=== PATIENT | male | born 1990 | race African-American/Black ===

== ENCOUNTER 2018-05-05 22:37 | Emergency (ER) | payer BC ==
[~2018-05-05] VITALS: Ht 182.9 cm; Wt 95.3 kg
[2018-05-05 22:50] VITALS: BP 119/58
[2018-05-05] MEDS ORDERED: PROAIR HFA8.5 GM INH (23:02)
--- NOTE | 2018-05-05 23:03 | PHYS DOC ---
Past Medical History Past Medical History: No Pertinent History Past Surgical History: No Surgical History Alcohol Use: Occasionally Drug Use: Marijuana Adult General Chief Complaint Chief Complaint: MEDICATION REFILL HPI HPI Patient is a 27 year old male who presents with a need for medication refill. The patient is asthmatic and uses Proair inhalers. He states that he finished the last of his inhaler today. He is not currently symptomatic. He does not have a primary care provider and does need a referral for primary care. Review of Systems Review of Systems Constitutional: Denies fever or chills [] Eyes: Denies change in visual acuity, redness, or eye pain [] HENT: Denies nasal congestion or sore throat [] Respiratory: Denies cough or shortness of breath [] Cardiovascular: No additional information not addressed in HPI [] Neurologic: Denies headache, focal weakness or sensory changes [] Endocrine: Denies polyuria or polydipsia [] All other systems were reviewed and found to be within normal limits, except as documented in this note. Allergies Allergies Allergies Coded Allergies Type Severity Reaction Last Updated Verified No Known Drug Allergies 01/29/16 No Physical Exam Physical Exam Constitutional: Well developed, well nourished, no acute distress, non-toxic appearance. [] HENT: Normocephalic, atraumatic, bilateral external ears normal, oropharynx moist, no oral exudates, nose normal. [] Eyes: PERRLA, EOMI, conjunctiva normal, no discharge. [] Neck: Normal range of motion, no tenderness, supple, no stridor. [] Cardiovascular:Heart rate regular rhythm, no murmur [] Lungs & Thorax: Bilateral breath sounds clear to auscultation [] Neurologic: Alert and oriented X 3, normal motor function, normal sensory function, no focal deficits noted. [] Psychologic: Affect normal, judgement normal, mood normal. [] EKG EKG [] Radiology/Procedures Radiology/Procedures [] Course & Med Decision Making Course & Med Decision Making Pertinent Labs and Imaging studies reviewed. (See chart for details) [] Dragon Disclaimer Dragon Disclaimer This electronic medical record was generated, in whole or in part, using a voice recognition dictation system. Departure Departure Impression: Primary Impression: Medication refill Disposition: HOME, SELF-CARE Condition: STABLE Referrals: NO PCP (PCP) Patient Instructions: Liquid Medication Administration Additional Instructions: Use the medication as directed. Follow-up with primary care for recheck. If worsening return to the emergency department. Scripts Albuterol Sulfate (PROAIR HFA INHALER) 8.5 Gm Hfa.aer.ad 1 PUFF INH PRN Q6HRS PRN for SHORTNESS OF BREATH, #1 INHALER 6 Refills Prov: MED GOODMAN APRN 05/05/18 MED GOODMAN APRN May 05, 2018 23:03
== END 2018-05-05 23:20 | disposition home or self-care (01) ==
LOC: ER 22:37
DX: J45.909 Unspecified asthma, uncomplicated (principal); Z76.0 Encounter for issue of repeat prescription
CPT/HCPCS: 99283

== ENCOUNTER 2019-06-16 19:01 | Emergency (ER) | payer BC ==
[~2019-06-16] VITALS: Ht 182.9 cm; Wt 99.8 kg
[~2019-06-16 19:01] MED LIST: ALBU2.5V8 INH; PRED50TA PO
--- NOTE | 2019-06-16 20:57 | PHYS DOC ---
Past Medical History Past Medical History: Asthma, Bipolar Past Surgical History: No Surgical History Alcohol Use: Occasionally Drug Use: Marijuana Adult General Chief Complaint Chief Complaint: ABDOMINAL PAIN HPI HPI 28-year-old male presents to the emergency department with complaints of left side pain located in the ribs. He states worsens with movement, deep breath. States this is been ongoing for a few days off and on however today was worse. He denies any nausea, vomiting, shortness of breath, abdominal pain. She has tried no [id number] medications for his pain. All other ROS negative unless documented in HPI Review of Systems Review of Systems See Above Current Medications Current Medications Current Medications Medications (Trade) Dose Ordered Sig/Ita Start Time Stop Time Status Last Admin Dose Admin Ketorolac Tromethamine (Toradol Im) 60 mg 1X ONCE 06/16/19 21:00 06/16/19 21:01 DC Allergies Allergies Allergies Coded Allergies Type Severity Reaction Last Updated Verified No Known Drug Allergies 01/29/16 No Physical Exam Physical Exam See Above Constitutional: Well developed, well nourished, no acute distress, non-toxic appearance. [] Cardiovascular:Heart rate regular rhythm, no murmur [] Lungs & Thorax: Bilateral breath sounds clear to auscultation, pain to palpation over the left ribs[] Abdomen: Bowel sounds normal, soft, no tenderness, no masses, no pulsatile masses. [] Skin: Warm, dry, no erythema, no rash. [] Back: No tenderness, no CVA tenderness. [] Extremities: No tenderness, no edema. [] Neurologic: Alert and oriented X 3, no focal deficits noted. [] Psychologic: Affect normal, judgement normal, mood normal. [] Current Patient Data Vital Signs Vital Signs Date Time Temp Pulse Resp B/P (MAP) Pulse Ox O2 Delivery O2 Flow Rate FiO2 06/16/19 19:37 97.6 77 18 139/86 (103) 96 Room Air 97.6 EKG EKG [] Radiology/Procedures Radiology/Procedures [] Course & Med Decision Making Course & Med Decision Making Pertinent Labs and Imaging studies reviewed. (See chart for details) []28-year-old male presents to the emergency department with complaints of left side pain located in the ribs. He states worsens with movement, deep breath. States this is been ongoing for a few days off and on however today was worse. He denies any nausea, vomiting, shortness of breath, abdominal pain. She has tried no kxeu-[id number]-[id number] medications for his pain. CXR without acute findings Likely costochondritis - discussed use of anti-inflammatory over the counter Toradol IV offered in ER Discussed findings with mother/patient at bedside Noé Disclaimer Noé Disclaimer This electronic medical record was generated, in whole or in part, using a voice recognition dictation system. Departure Departure Impression: Primary Impression: Costochondritis Disposition: 01 HOME, SELF-CARE Condition: STABLE Referrals: NO PCP (PCP) Patient Instructions: Costochondritis, [id number] Additional Instructions: Recommend follow up with PCP 3 - 5 days Return to the ER with worsening symptoms, intractable pain, fever, altered mental status Motrin 800mg as needed every 8 hours for pain Flagyl 500mg po BID x 7 days (trich exposure) Scripts Metronidazole (FLAGYL) 500 Mg Tablet 1 TAB PO BID, #14 TAB Prov: TIFFANY MONK MD 06/16/19 TIFFANY MONK MD Jun 16, 2019 20:57
[2019-06-16] MEDS ORDERED: KETOROLAC 60 MG/2 ML VIAL. IM ONE (21:00)
[2019-06-16 21:56] VITALS: BP 106/67
[2019-06-16] MEDS ORDERED: METR500T PO (22:02)
--- NOTE | 2019-06-16 23:05 | RAD ---
CHEST AP ONLY Clinical Indication: Left sided chest pain Comparison: None. Findings: Portable upright frontal view of the chest was obtained. The cardiomediastinal silhouette is normal. Lungs are clear. There is no pneumothorax. No pleural effusion is appreciated. No acute bone abnormality. IMPRESSION: No acute cardiopulmonary process. Electronically signed by: Hany Lawton MD (06/16/2019 11:02 PM) [facility]
== END 2019-06-16 22:01 | disposition home or self-care (01) ==
LOC: ER 19:01
DX: M94.0 Chondrocostal junction syndrome [Tietze] (principal); J45.909 Unspecified asthma, uncomplicated; F31.9 Bipolar disorder, unspecified; F12.90 Cannabis use, unspecified, uncomplicated
CPT/HCPCS: 71045; 99283; 99284